=== PATIENT | female | born 1940 | race Asian ===

== ENCOUNTER 2018-07-04 12:36 | Emergency (ER) | payer OTHER, MEDICAID ==
[~2018-07-04] VITALS: Ht 160 cm; Wt 90.7 kg
[~2018-07-04 12:36] MED LIST: IBUP400T21 PO; LISI-646 PO
[2018-07-04 13:29] LABS: Basophils # (auto) 0 uL; Basophils % (auto) 0.8 % (0.0-2.0); Eosinophils # (auto) 0.2 uL; Eosinophils % (auto) 4.3 % (0.0-7.0); Hematocrit 44.3 % (36.0-46.0); Hemoglobin 14.7 g/dL (12.2-16.2); Lymphocytes # (auto) 1.5 uL; Lymphocytes % (auto) 31.6 % (10.0-50.0); Mean Corpuscular Hemoglobin 32.8 pg (28.0-32.0); Mean Corpuscular Hgb Conc. 33.1 g/dL (32.0-36.0); Mean Corpuscular Volume 99.2 fL (80.0-100.0); Monocytes # (auto) 0.4 uL; Monocytes % (auto) 8.7 % (0.0-12.0); Neutrophils # (auto) 2.6 uL; Neutrophils % (auto) 54.6 % (37.0-80.0); Nucleated Red Blood Cells % 0.1 %; Platelet Count (auto) 194 10^3/uL (140-450); Red Blood Cells 4.47 10^6/uL (4.0-5.20); Red Cell Distribution Width 13.2 % (11.8-14.3); White Blood Cell 4.8 10^3/uL (4.4-10.8)
[2018-07-04 13:46] LABS: Potassium 4.8 mmol/L (3.5-5.1)
[2018-07-04 13:53] LABS: Albumin 3.7 g/dL (3.4-5.0); BUN/Creatinine Ratio 19.7; Bilirubin, Total 0.4 mg/dL (0.2-1.0); Calcium 8.8 mg/dL (8.5-10.1); Total Protein 7.4 g/dL (6.4-8.2)
[2018-07-04 18:41] VITALS: BP 161/71
== END 2018-07-04 18:45 | disposition home or self-care (01) ==
LOC: ER 12:39
DX: J06.9 Acute upper respiratory infection, unspecified (principal); I11.0 Hypertensive heart disease with heart failure; I50.9 Heart failure, unspecified; E07.9 Disorder of thyroid, unspecified; Z90.49 Acquired absence of other specified parts of digestive tract
CPT/HCPCS: 36415; 71046; 80053; 83880; 85025; 93005

== ENCOUNTER 2019-04-10 12:05 | Emergency (ER) | payer OTHER ==
[~2019-04-10] VITALS: Ht 160 cm; Wt 91.6 kg
[2019-04-10 12:56] LABS: Basophils # (auto) 0 uL; Basophils % (auto) 0.8 % (0.0-2.0); Eosinophils # (auto) 0.3 uL; Eosinophils % (auto) 5.5 % (0.0-7.0); Hematocrit 46.1 % (36.0-46.0); Hemoglobin 15.2 g/dL (12.2-16.2); Lymphocytes % (auto) 36.7 % (10.0-50.0); Mean Corpuscular Hemoglobin 32.2 pg (28.0-32.0); Mean Corpuscular Hgb Conc. 32.9 g/dL (32.0-36.0); Mean Corpuscular Volume 97.9 fL (80.0-100.0); Monocytes # (auto) 0.4 uL; Monocytes % (auto) 6.9 % (0.0-12.0); Neutrophils # (auto) 2.7 uL; Neutrophils % (auto) 50.1 % (37.0-80.0); Nucleated Red Blood Cells % 0.1 %; Platelet Count (auto) 232 10^3/uL (140-450); Red Blood Cells 4.71 10^6/uL (4.0-5.20); Red Cell Distribution Width 12.9 % (11.8-14.3); White Blood Cell 5.3 10^3/uL (4.4-10.8)
[2019-04-10 13:15] LABS: BUN/Creatinine Ratio 12.3
[2019-04-10 13:18] LABS: Bilirubin, Total 0.5 mg/dL (0.2-1.0); Total Protein 7.9 g/dL (6.4-8.2)
[2019-04-10] MEDS ORDERED: cefTRIAXone SOD 1,000 MG VL IM ONE (13:30)
[2019-04-10] MEDS ORDERED: ALBUTEROL SULF 2.5 MG/0.5ML(0.5%) NEB SOLN NEB ONE (13:30)
[2019-04-10] MEDS ORDERED: methylPREDNISolone SOD SUCC 125 MG/2 ML VL IV ONE (13:30)
[2019-04-10] MEDS ORDERED: IPRATROPIUM BROM 0.5 MG/2.5ML INH SOL NEB ONE (13:30)
[2019-04-10] MEDS ORDERED: cefTRIAXone 1GM/50ML D5W 50 ML IV ONE ×2 (13:31→13:45)
[2019-04-10 13:32] VITALS: BP 152/86
== END 2019-04-10 15:47 | disposition home or self-care (01) ==
LOC: ER 12:13
DX: J18.9 Pneumonia, unspecified organism (principal); I10 Essential (primary) hypertension
CPT/HCPCS: 36415; 71046; 80053; 83605; 85025; 87040; 94640; 94761; 96365; 96375; 99284; J0696; J2930; J7611; J7644

== ENCOUNTER 2019-07-22 15:41 | Emergency (ER) | payer OTHER ==
[~2019-07-22] VITALS: Ht 160 cm; Wt 86.2 kg
[2019-07-22 19:10] VITALS: BP 162/83
[2019-07-22] MEDS ORDERED: HYDROcodone-ACET 5/325MG TAB PO ONE (19:15)
== END 2019-07-22 19:50 | disposition home or self-care (01) ==
LOC: ER 15:41
DX: S42.024A Nondisplaced fracture of shaft of right clavicle, initial encounter for closed fracture (principal); I10 Essential (primary) hypertension; Z90.49 Acquired absence of other specified parts of digestive tract; Z79.899 Other long term (current) drug therapy; Z79.1 Long term (current) use of non-steroidal anti-inflammatories (NSAID); W01.0XXA Fall on same level from slipping, tripping and stumbling without subsequent striking against object, initial encounter; Y93.89 Activity, other specified; Y92.89 Other specified places as the place of occurrence of the external cause; Y99.8 Other external cause status
CPT/HCPCS: 73030

== ENCOUNTER 2019-09-03 19:51 | Emergency (ER) | payer OTHER ==
[~2019-09-03] VITALS: Ht 162.6 cm; Wt 63.5 kg
[2019-09-03] MEDS ORDERED: HYDROcodone-ACET 10/325MG TAB PO ONE (21:00)
[2019-09-03] MEDS ORDERED: ONDANSETRON HCL 4 MG/2 ML VIAL IV ONE (22:00)
[2019-09-03] MEDS ORDERED: MORPHINE SULFATE 4 MG/ML SYR/VIAL IV ONE (22:00)
[2019-09-04] MEDS ORDERED: MORPHINE SULFATE 4 MG/ML SYR/VIAL IV ONE ×3 (00:45→08:15)
[2019-09-04] MEDS ORDERED: LIDOCAINE 1% HCL (LOCAL ANESTH.) INJ 20ML MDV ID ONE (02:30)
[2019-09-04] MEDS ORDERED: HYDROcodone-ACET 5/325MG TAB PO PRN ×2 (02:45→06:45)
[2019-09-04] MEDS ORDERED: MORPHINE SULFATE 4 MG/ML SYR/VIAL IV PRN ×2 (02:45→06:45)
[2019-09-04] MEDS ORDERED: TEMAZEPAM 15 MG CAP PO PRN ×2 (02:45→06:45)
[2019-09-04] MEDS ORDERED: ACETAMINOPHEN 325 MG TAB PO PRN ×2 (02:45→06:45)
[2019-09-04] MEDS ORDERED: ONDANSETRON HCL 4 MG/2 ML VIAL IV PRN ×2 (02:45→06:45)
[2019-09-04 07:00] LABS: Basophils # (auto) 0 10 ^3/uL (0-0.2); Basophils % (auto) 0.2 % (0.0-2.0); Eosinophils # (auto) 0 10 ^3/uL (0-0.8); Eosinophils % (auto) 0.4 % (0.0-7.0); Hematocrit 39.2 % (36.0-46.0); Hemoglobin 13.4 g/dL (12.2-16.2); Lymphocytes # (auto) 1.2 10 ^3/uL (0.4-5.4); Lymphocytes % (auto) 16.4 % (10.0-50.0); Mean Corpuscular Hemoglobin 32.9 pg (28.0-32.0); Mean Corpuscular Hgb Conc. 34.3 g/dL (32.0-36.0); Mean Corpuscular Volume 95.9 fL (80.0-100.0); Monocytes # (auto) 0.7 10 ^3/uL (0-1.3); Neutrophils # (auto) 5.5 10 ^3/uL (1.6-8.6); Platelet Count (auto) 180 10^3/uL (140-450); Red Blood Cells 4.08 10^6/uL (4.0-5.20); Red Cell Distribution Width 12.8 % (11.8-14.3); White Blood Cell 7.4 10^3/uL (4.4-10.8)
[2019-09-04 07:18] LABS: Albumin 3.3 g/dL (3.4-5.0); BUN/Creatinine Ratio 22.7; Calcium 8.3 mg/dL (8.5-10.1); INR 1.08 (0.9-1.15); Partial Thromboplastin Time 23.8 sec (23.64-32.05); Potassium 4.2 mmol/L (3.5-5.1)
[2019-09-04 07:21] LABS: Bilirubin, Total 0.7 mg/dL (0.2-1.0); Total Protein 6.6 g/dL (6.4-8.2)
[2019-09-04] MEDS ORDERED: ONDANSETRON HCL 4 MG/2 ML VIAL IV ONE (08:15)
[2019-09-04] MEDS ORDERED: LISINOPRIL 10 MG TAB PO SCH ×2 (10:00)
[2019-09-04] MEDS ORDERED: FAMOTIDINE 20 MG TAB PO SCH ×2 (10:00)
[2019-09-04 10:31] VITALS: BP 99/41
== END 2019-09-04 10:05 | disposition short-term general hospital (02) ==
LOC: EDBD 19:51 → ER 20:02 → OVERFLOW 20:03 → UNDOADMIN 20:03 → ER 09-04 10:05
DX: S82.002A Unspecified fracture of left patella, initial encounter for closed fracture (principal); S52.532A Colles' fracture of left radius, initial encounter for closed fracture; V89.2XXA Person injured in unspecified motor-vehicle accident, traffic, initial encounter; Y93.89 Activity, other specified; Y92.410 Unspecified street and highway as the place of occurrence of the external cause; Y99.8 Other external cause status
CPT/HCPCS: 12002; 36415; 73110; 73502; 73552; 73560; 73590; 73700; 80053; 85025; 85610; 85730; 96374; 96375; 96376; 99285; J2270; J2405; 12001; J2001

== ENCOUNTER 2024-04-23 15:37 | Emergency (ER) | payer OTHER, MEDICAID ==
[~2024-04-23] VITALS: Ht 160 cm; Wt 90.0 kg
[~2024-04-23 15:37] MED LIST changes: +IBUP-1453 PO; -IBUP400T21 PO; -LISI-646 PO; +LISI20TA56 PO
--- NOTE | 2024-04-23 15:52 | ED.PDOC ---
SOB-HPI HPI Comments HPI: Poor Historian. 84-year-old female extremely poor historian presents to emergency department to get her pneumonia checked. She said she was diagnosed with pneumonia last week and completed the five day course of antibiotics. Patient is still have some dry cough. Denies any fever or any other acute pain. Past Medcial History: Chronic low back pain Past Surgical History: REVIEW OF SYSTEMS: CONSTITUTIONAL: Denies acute: fever, diaphoresis, chills, HEAD: Denies acute: headache, photophobia Eyes: Denies acute: Double vision, vision loss, eye pain, eye discharge. EARS: Denies acute: tinnitus, hearing loss, ear discharge, ear pain, THROAT: Denies acute: sore throat, swelling, difficulty swallowing , pain with swallowing, change in voice. NECK: Denies acute: neck pain, neck swelling, stiff neck. HEART: Denies acute : chest pain, palpitations, LUNGS: Denies acute: wheezing, hemoptysis ABDOMEN: Denies acute: abdominal pain, Nausea, Vomiting, diarrhea, melena , hematemesis, hematochezia SKIN: Denies acute: rash, redness, lesions, itchiness. EXTREMITIES: Denies acute: calf pain, numbness, tingling, weakness, denies pain in extremity. Denies acute: Low back pain. Neuro: Denies acute: focal neurological deficit, motor or sensory focal neurological deficit, tremors, seizure like activity, confusion, dizziness, change in mental status, loss of bowel or bladder function, cauda equina like symptoms. : Denies acute: dysuria, hematuria, flank pain, increase in urinary frequency. PSYCH: Denies acute: hallucination, suicidal ideation, homicidal ideation. FEMALE: Denies acute: abnormal vaginal bleeding, foul odor, unusual discharge. PHYSICAL EXAM: General: no acute distress, awake and alert. Head: normocephalic, atraumatic. Neck: supple, trachea is midline, no swelling. Throat: Normal phonation. Eyes:, no erythema, no purulent discharge, no proptosis, no icterus. Heart: regular rate, regular rhythm, no significant murmur appreciated. Lungs: no apparent respiratory distress, Able to speak in full sentences. No wheezing, no rhonchi, no crackles. No stridors Clear to auscultation bilaterally. Abdomen: non tender to palpation, non distended, soft, no guarding, no rebound, + bowel sounds. Neuro: Awake, Alert, oriented to name, self, situation, follows commands GCS=15. Speech is normal. Skin: no petechia, no purpura, no cyanosis, non-pale, not jaundice. Lower extremities: --trace bilateral - Pitting edema no deformity, no focal swelling, no calf TTP. Makes eye contact. moves all four extremities. Face: no apparent facial droop. 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 Was a procedure done?: No Differential Dx Differential Diagnosis: Other (DDx include ACS, unstable angina, anxiety, PE, pneumothroax, neoplasm, cardiac ischemia, COPD, asthma, CHF, pleural effusion, tobacco abuse, pneumonia, hypoxia, hypercapnia, anemia., infection/sepsis., pulmonary edema. Asthma, Cardiac tamponade, infection.) X-Ray, Labs, Meds, VS Vital Signs Date Time Temp Pulse Resp B/P (MAP) Pulse Ox O2 Delivery O2 Flow Rate FiO2 04/23/24 17:40 93 04/23/24 16:05 97 04/23/24 15:57 98.7 99 18 129/66 (87) 95 Lab Test 04/23/24 19:38 04/23/24 18:36 04/23/24 17:51 04/23/24 16:00 Range/Units Troponin I High Sensitivity 27 27 </=34 ng/L Blood Gas Specimen Type Arterial Blood Gas Sample Site Left radial Blood Gas Patient Temperature 37.0 Arterial Blood Date Drawn [id number] Arterial Blood pH 7.433 7.350-7.450 Arterial Blood Partial Pressure CO2 32.5 32.0-45.0 mmHg Arterial Blood Partial Pressure O2 63.9 L 83.0-108.0 mmHg Arterial Blood HCO3 21.2 21.0-28.0 mmol/L Arterial Blood Oxygen Saturation 92.8 L 94.0-98.0 % Arterial Blood Base Excess -2.0 -2.0-3.0 mmol/L Arterial Blood Oxyhemoglobin 91.2 L 94.0-98.0 % Arterial Blood Carboxyhemoglobin 1.3 0.5-1.5 % Arterial Blood Methemoglobin 0.4 0.0-1.5 % Minh Test Yes Blood Gas Total Hemoglobin 16.00 12.0-16.0 g/dL Blood Gas Modality Room air Blood Gas Spontaneous Rate 20 FiO2 % 21.0 Blood Gas Notified Time [id number] SARS-CoV-2 Antigen (Rapid) Negative NEGATIVE Test 04/23/24 15:58 Range/Units White Blood Count 4.1 L 4.4-10.8 10^3/uL Red Blood Count 4.59 4.0-5.20 10^6/uL Hemoglobin 15.5 12.2-16.2 g/dL Hematocrit 45.3 36.0-46.0 % Mean Corpuscular Volume 98.8 80.0-100.0 fL Mean Corpuscular Hemoglobin 33.9 H 28.0-32.0 pg Mean Corpuscular Hemoglobin Concent 34.3 32.0-36.0 g/dL Red Cell Distribution Width 12.9 11.8-14.3 % Platelet Count 192 140-450 10^3/uL Mean Platelet Volume 7.1 6.9-10.8 fL Neutrophils (%) (Auto) 50.2 37.0-80.0 % Lymphocytes (%) (Auto) 37.3 10.0-50.0 % Monocytes (%) (Auto) 8.0 0.0-12.0 % Eosinophils (%) (Auto) 3.9 0.0-7.0 % Basophils (%) (Auto) 0.6 0.0-2.0 % Neutrophils # (Auto) 2.1 1.6-8.6 10 ^3/uL Lymphocytes # (Auto) 1.5 0.4-5.4 10 ^3/uL Monocytes # (Auto) 0.3 0-1.3 10 ^3/uL Eosinophils # (Auto) 0.2 0-0.8 10 ^3/uL Basophils # (Auto) 0 0-0.2 10 ^3/uL Nucleated Red Blood Cells 0.1 % Sodium Level 141 136-145 mmol/L Potassium Level 4.2 3.5-5.1 mmol/L Chloride Level 106 98-107 mmol/L Carbon Dioxide Level 28 20-31 mmol/L Anion Gap 7 5-15 Blood Urea Nitrogen 12 9-23 mg/dL Creatinine 0.74 0.550-1.02 mg/dL Glomerular Filtration Rate Calc 80 >90 mL/min BUN/Creatinine Ratio 16.2 10.0-20.0 Serum Glucose 105 74-106 mg/dL Calcium Level 10.1 8.7-10.4 mg/dL Total Bilirubin 0.6 0.2-1.0 mg/dL Aspartate Amino Transferase (AST) 17 13-40 U/L Alanine Aminotransferase (ALT) 14 7-40 U/L Alkaline Phosphatase 102 46-116 U/L Troponin I High Sensitivity 31 </=34 ng/L B-Type Natriuretic Peptide 69.91 0-100 pg/mL Total Protein 6.8 5.7-8.2 g/dL Albumin 4.1 3.2-4.8 g/dL [place] [address] Ph: [phone] DIAGNOSTIC IMAGING Diagnostic Imaging Report : [id number] Signed PATIENT: AMA DORSEY ACCT: [id number] UNIT: [id number] : 1940 LOC: ER ROOM / BED: / AGE / SEX: 84 / F ADM STATUS: REG ER SERVICE 1728 ORDERING PHYSICIAN: BRENDA ASCENCIO DO PROCEDURE(s): CTACH - CT ANGIO CHEST CONTRAST REASON: Mediastinal mass, shortness of breath ORDER NUMBER(s): [id number], ACCESSION NUMBER(s): [id number] Procedure: CT CT ANGIO CHEST CONTRAST Reason for study/Clinical History: Mediastinal mass, shortness of breath Comparison Study: None available at time of dictation. Exam Date: 04/23/2024 08:13 PM Radiation Dose Information: CT Dose: CTDI volume is 23.36 mGy. Dose-length product is 789.81 mGy*cm Contrast: Type of contrast: Omnipaque 350 Contrast inject: 100 mL Contrast wasted:0 TECHNIQUE: After the uneventful administration of intravenous contrast intravenously, CT imaging was performed through the chest. Coronal and sagittal reformations were performed by the technologist. MIP images were obtained and evaluated. FINDINGS: Lower Neck: Normal thyroid tissue is not visualized. There is enlarged heterogeneous tissue in the paratracheal area bilaterally which extends into the upper chest. Findings may represent a thyroid goiter or adenopathy. Recommend thyroid ultrasound for further evaluation.. Pulmonary artery measures 3.4 cm in diameter. There are no filling defects in the pulmonary arteries to suggest pulmonary emboli. Aorta and Vasculature: Normal caliber of thoracic aorta. Lymph Nodes: No enlarged intrathoracic lymph nodes. Mediastinum: Heart size is normal. There is no pericardial effusion. The esophagus is unremarkable. Lungs: No focal consolidation, pleural effusion or significant pneumothorax. No suspicious pulmonary nodule or mass. Musculoskeletal: No acute osseous abnormality. Upper abdomen: Limited portions of the upper abdomen are unremarkable. MIP reformatted images were obtained and evaluated. MIP reformatted images were obtained and evaluated. MIP reformatted images were obtained and evaluated. MIP reformatted images were obtained and evaluated. MIP reformatted images were obtained and evaluated. MIP reformatted images were obtained and evaluated. MIP reformatted images were obtained and evaluated. MIP 3-D reformations were obtained. IMPRESSION: 1. No findings to suggest pulmonary emboli. 2. Enlarged heterogeneous tissue replacing thyroid tissue bilaterally. This may represent a thyroid goiter or adenopathy. Recommend thyroid ultrasound for further evaluation. All CT scans at this medical facility are performed using dose modulation te chniques as appropriate to a performed exam including the following:Automated exposure control was utilized; adjustment of the MA and/or KV according to patient size; and use of iterative reconstruction technique. ATED BY: LURDES VASQUEZ Jr., DO DICTATED DATE/TIME: 04/23/242103 SIGNED BY: LURDES VASQUEZ Jr., SIGNED DATE/TIME: 04/23/242103 CC: [place] [address] Ph: [phone] DIAGNOSTIC IMAGING Diagnostic Imaging Report : [id number] Signed PATIENT: AMA DORSEY ACCT: [id number] UNIT: [id number] : 1940 LOC: ER ROOM / BED: / AGE / SEX: 84 / F ADM STATUS: REG ER SERVICE 1728 ORDERING PHYSICIAN: BRENDA ASCENCIO DO PROCEDURE(s): CTACH - CT ANGIO CHEST CONTRAST REASON: Mediastinal mass, shortness of breath ORDER NUMBER(s): [id number], ACCESSION NUMBER(s): [id number] Procedure: CT CT ANGIO CHEST CONTRAST Reason for study/Clinical History: Mediastinal mass, shortness of breath Comparison Study: None available at time of dictation. Exam Date: 04/23/2024 08:13 PM Radiation Dose Information: CT Dose: CTDI volume is 23.36 mGy. Dose-length product is 789.81 mGy*cm Contrast: Type of contrast: Omnipaque 350 Contrast inject: 100 mL Contrast wasted:0 TECHNIQUE: After the uneventful administration of intravenous contrast intravenously, CT imaging was performed through the chest. Coronal and sagittal reformations were performed by the technologist. MIP images were obtained and evaluated. FINDINGS: Lower Neck: Normal thyroid tissue is not visualized. There is enlarged heterogeneous tissue in the paratracheal area bilaterally which extends into the upper chest. Findings may represent a thyroid goiter or adenopathy. Recommend thyroid ultrasound for further evaluation.. Pulmonary artery measures 3.4 cm in diameter. There are no filling defects in the pulmonary arteries to suggest pulmonary emboli. Aorta and Vasculature: Normal caliber of thoracic aorta. Lymph Nodes: No enlarged intrathoracic lymph nodes. Mediastinum: Heart size is normal. There is no pericardial effusion. The esophagus is unremarkable. Lungs: No focal consolidation, pleural effusion or significant pneumothorax. No suspicious pulmonary nodule or mass. Musculoskeletal: No acute osseous abnormality. Upper abdomen: Limited portions of the upper abdomen are unremarkable. MIP reformatted images were obtained and evaluated. MIP reformatted images were obtained and evaluated. MIP reformatted images were obtained and evaluated. MIP reformatted images were obtained and evaluated. MIP reformatted images were obtained and evaluated. MIP reformatted images were obtained and evaluated. MIP reformatted images were obtained and evaluated. MIP 3-D reformations were obtained. IMPRESSION: 1. No findings to suggest pulmonary emboli. 2. Enlarged heterogeneous tissue replacing thyroid tissue bilaterally. This may represent a thyroid goiter or adenopathy. Recommend thyroid ultrasound for further evaluation. All CT scans at this medical facility are performed using dose modulation techniques as appropriate to a performed exam including the following:Automated exposure control was utilized; adjustment of the MA and/or KV according to patient size; and use of iterative reconstruction technique. ATED BY: LURDES VASQUEZ Jr., DO DICTATED DATE/TIME: 04/23/242103 SIGNED BY: LURDES VASQUEZ Jr., DO SIGNED DATE/TIME: 04/23/242103 CC: [place] [address] Ph: [phone] DIAGNOSTIC IMAGING Diagnostic Imaging Report : [id number] Signed PATIENT: AMA DORSEY ACCT: [id number] UNIT: [id number] : 1940 LOC: ER ROOM / BED: / AGE / SEX: 84 / F ADM STATUS: REG ER SERVICE 44 ORDERING PHYSICIAN: BRENDA ASCENCIO DO PROCEDURE(s): CXRP - CHEST PORTABLE REASON: sob ORDER NUMBER(s): [id number], ACCESSION NUMBER(s): [id number] CHEST RADIOGRAPH Indication:sob Technique: Single frontal view of the chest was obtained Comparison: None FINDINGS: Lines and Tubes: None Lungs: No focal consolidation. Fullness of the upper mediastinum. Bilateral lower lung zone and left mid lung zone linear densities. Pleura: No effusion. No pneumothorax. Cardiomediastinal contours: Unremarkable Bones: No acute osseous abnormality. Chronic fracture deformity of the right clavicle. IMPRESSION: Fullness of the upper mediastinum which may be from prominent thyroid/mediastinal mass /lymphadenopathy. CT is recommended for further evaluation. Bilateral lower lung zone and left mid lung zone atelectasis ATED BY: JENELLE DUEÑAS DO DICTATED DATE/TIME: 04/23/241640 SIGNED BY: JENELLE DUEÑAS DO SIGNED DATE/TIME: 04/23/241640 CC: Time of 1ST Reevaluation: 21:50 Reevaluation 1ST: Unchanged Time of 2ND Reevaluation: 21:52 (The case was discussed with the admitting team (HPI, physical exam, labs and diagnostic tests that were available at the time of disposition, ED course, treatment plan) on the phone. They agreed to come and evaluate the patient. They said they will likely discharge the patient home with home O2 oxygen and arrange for follow up. 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 ) Reevaluation 2ND: Unchanged Patient Education/Counseling: Diagnosis, Treatment Family Education/Counseling: No Family Present Comments Patient presented with the above HPI.--dyspnea----workup was initiated. patient was found with the above mentioned diagnosis. Patient ED course and VS have been stabilized. Patient has been reassessed in the ED and remained in a stable condition. Pertinent incidental findings were discussed with the patient and/or family. Patient/family voices understanding and is agreeable with plan. Patient has been observed in the ED adequate length of time to insure improvement/stability. patient was admitted to the medicine team for further evaluation and treatment of their presentation. All the reports of any imaging studies that were ordered by myself were reviewed by myself. Departure 1 Departure Time of Disposition: 17:57 Impression: Primary Impression: Dyspnea Additional Impressions: Abnormal finding on CT scan Lung mass T wave inversion in EKG Hypoxemia Disposition: ADMITTED INPATIENT Admit to: Tele Condition: Guarded Discharged With: Self Critical Care Note Critical Care Time?: Yes (35 min-critical care time only) BRENDA ASCENCIO DO Apr 23, 2024 15:51
--- NOTE | 2024-04-23 16:08 | ECG ---
[facility] Test Date: 2024-04-23 Test Time: 16:05:44 Pat Name: AMA DORSEY Department: er Room: [address] [place] [address] Gender: F Cytologist: shalom : 1940 Requested By: BRENDA ASCENCIO Order Number: [id number] Reading MD: Geovany Gonzalez Measurements Intervals [place] Rate: 97 P: 86 [place]: 135 QRS: 41 QRSD: 95 T: -76 QT: 385 QTc: 489 Interpretive Statements Sinus rhythm Abnormal T, consider ischemia, diffuse leads Baseline wander in lead(s) II,III,aVF,V2,V3 Electronically Signed On 04-26-2024 14:29:56 PDT by Geovany Gonzalez Please click the below link to view image of tracing.
[2024-04-23 16:15] LABS: Basophils # (auto) 0 10 ^3/uL (0-0.2); Basophils % (auto) 0.6 % (0.0-2.0); Eosinophils # (auto) 0.2 10 ^3/uL (0-0.8); Eosinophils % (auto) 3.9 % (0.0-7.0); Hematocrit 45.3 % (36.0-46.0); Hemoglobin 15.5 g/dL (12.2-16.2); Lymphocytes # (auto) 1.5 10 ^3/uL (0.4-5.4); Lymphocytes % (auto) 37.3 % (10.0-50.0); Mean Corpuscular Hemoglobin 33.9 pg (28.0-32.0); Mean Corpuscular Hgb Conc. 34.3 g/dL (32.0-36.0); Mean Corpuscular Volume 98.8 fL (80.0-100.0); Monocytes # (auto) 0.3 10 ^3/uL (0-1.3); Neutrophils # (auto) 2.1 10 ^3/uL (1.6-8.6); Neutrophils % (auto) 50.2 % (37.0-80.0); Nucleated Red Blood Cells % 0.1 %; Platelet Count (auto) 192 10^3/uL (140-450); Red Blood Cells 4.59 10^6/uL (4.0-5.20); Red Cell Distribution Width 12.9 % (11.8-14.3); White Blood Cell 4.1 10^3/uL (4.4-10.8)
[2024-04-23 16:36] LABS: Alanine Aminotransferase 14 U/L (7-40); Albumin 4.1 g/dL (3.2-4.8); Alkaline Phosphatase 102 U/L (46-116); Anion Gap 7 (5-15); Aspartate Aminotransferase 17 U/L (13-40); BUN/Creatinine Ratio 16.2 (10.0-20.0); Bilirubin, Total 0.6 mg/dL (0.2-1.0); Blood Urea Nitrogen 12 mg/dL (9-23); Calcium 10.1 mg/dL (8.7-10.4); Carbon Dioxide 28 mmol/L (20-31); Chloride 106 mmol/L (98-107); Glucose 105 mg/dL (74-106); Potassium 4.2 mmol/L (3.5-5.1); Sodium 141 mmol/L (136-145); Total Protein 6.8 g/dL (5.7-8.2)
--- NOTE | 2024-04-23 16:44 | DVH ---
CHEST RADIOGRAPH Indication:sob Technique: Single frontal view of the chest was obtained Comparison: None FINDINGS: Lines and Tubes: None Lungs: No focal consolidation. Fullness of the upper mediastinum. Bilateral lower lung zone and left mid lung zone linear densities. Pleura: No effusion. No pneumothorax. Cardiomediastinal contours: Unremarkable Bones: No acute osseous abnormality. Chronic fracture deformity of the right clavicle. IMPRESSION: Fullness of the upper mediastinum which may be from prominent thyroid/mediastinal mass /lymphadenopat hy. CT is recommended for further evaluation. Bilateral lower lung zone and left mid lung zone atelectasis
[2024-04-23 17:15] LABS: COVID19 ANTIGEN SOFIA FIA NEGATIVE (NEGATIVE)
[2024-04-23] MEDS: IOHEXOL 350 MG/ML 100ML IJ ONE ×2 (19:21→20:31)
--- NOTE | 2024-04-23 21:07 | DVH ---
Procedure: CT CT ANGIO CHEST CONTRAST Reason for study/Clinical History: Mediastinal mass, shortness of breath Comparison Study: None available at time of dictation. Exam Date: 04/23/2024 08:13 PM Radiation Dose Information: CT Dose: CTDI volume is 23.36 mGy. Dose-length product is 789.81 mGy*cm Contrast: Type of contrast: Omnipaque 350 Contrast inject: 100 mL Contrast wasted:0 TECHNIQUE: After the uneventful administration of intravenous contrast intravenously, CT imaging was performed through the chest. Coronal and sagittal reformations were performed by the technologist. MIP images were obtained and evaluated. FINDINGS: Lower Neck: Normal thyroid tissue is not visualized. There is enlarged heterogeneous tissue in the pa ratracheal area bilaterally which extends into the upper chest. Findings may represent a thyroid goit er or adenopathy. Recommend thyroid ultrasound for further evaluation.. Pulmonary artery measures 3.4 cm in diameter. There are no filling defects in the pulmonary arteries to suggest pulmonary emboli. Aorta and Vasculature: Normal caliber of thoracic aorta. Lymph Nodes: No enlarged intrathoracic lymph nodes. Mediastinum: Heart size is normal. There is no pericardial effusion. The esophagus is unremarkable. Lungs: No focal consolidation, pleural effusion or significant pneumothorax. No suspicious pulmonary nodule or mass. Musculoskeletal: No acute osseous abnormality. Upper abdomen: Limited portions of the upper abdomen are unremarkable. MIP reformatted images were obtained and evaluated. MIP reformatted images were obtained and evaluated. MIP reformatted images were obtained and evaluated. MIP reformatted images were obtained and evaluated. MIP reformatted images were obtained and evaluated. MIP reformatted images were obtained and evaluated. MIP reformatted images were obtained and evaluated. MIP 3-D reformations were obtained. IMPRESSION: 1. No findings to suggest pulmonary emboli. 2. Enlarged heterogeneous tissue replacing thyroid tissue bilaterally. This may represent a thyroid goiter or adenopathy. Recommend thyroid ultrasound for further evaluation. All CT scans at this medical facility are performed using dose modulation techniques as appropriate t o a performed exam including the following:Automated exposure control was utilized; adjustment of the MA and/or KV according to patient size; and use of iterative reconstruction technique.
[2024-04-23] MEDS ORDERED: ACETAMINOPHEN 325 MG TAB PO PRN (21:45)
[2024-04-23] MEDS ORDERED: MORPHINE SULFATE INJ 2 MG/ml SYRG IV PRN (21:45)
[2024-04-23] MEDS ORDERED: ONDANSETRON HCL 4 MG/2 ML VIAL IV PRN (21:45)
[2024-04-23] MEDS ORDERED: HYDROcodone-ACET 5/325MG TAB PO PRN (21:45)
[2024-04-23] MEDS ORDERED: NITROGLYCERIN 0.4 MG SL TAB SL PRN (21:45)
--- NOTE | 2024-04-23 21:58 | DVHINCON2 ---
ALEXANDR SHEEHAN NURSE ANESTHESIA PROGRAM DIRECTOR 04/23/24 2158: Date of service: Apr 23, [address] Slade Reason for Consultation Medical management History of Present Illness 84-year-old female with past medical history COPD, chronic back pain Presents with complaints of shortness of breath. Patient endorsed to ER provider she had recently been treated for pneumonia with oral antibiotics. During the emergency department evaluation, CBC is unremarkable W-4.1, H&H 15.5/45.3, PLT 192; CMP is unremarkable Na 141, K 4.2, BUN 12, creatinine 0.74, troponin negative ; BNP 69.9. CXR demonstrates left lobe atelectasis, CTA chest is negative for PE or other acute findings. Does demonstrate enlarged tissue replacing thyroid tissue bilaterally, May represent the thyroid goiter, Which is under treatment by PCP. At this time patient denies Fevers, chills, Chest pain, palpitations, Abdominal pain, dysuria. Patient did endorse Lower back pain And intermittent episodes of diarrhea over the previous month. Family History: FH: HTN (hypertension) FHx: obesity Allergies: Coded Allergies: NO KNOWN ALLERGIES (Unverified , 03/16/17) Home Meds Reported Medications Lisinopril (Lisinopril) 20 Mg Tab, 10 MG PO DAILY, TAB 03/17/17 Ibuprofen (Ibuprofen) 400 Mg Tab, 1 TAB PO BIDPRN PRN for MILD PAIN OR TEMP>100.4, #20 TAB 03/17/17 Current Medications Current Medications Medications (Trade) Dose Ordered Sig/Randi Route PRN Reason Start Time Stop Time Status Last Admin Acetaminophen (Tylenol Tablet) 325 mg Q4HP PRN PO MILD PAIN (1-3 PAIN SCALE) 04/23/24 21:45 Acetaminophen/ Hydrocodone Bitart ([place] 5/325MG Tab) 1 tab Q4HP PRN PO MODERATE PAIN (4-6 PAIN SCALE) 04/23/24 21:45 Ondansetron HCl (Zofran) 4 mg Q4HP PRN IV NAUSEA / VOMITING 04/23/24 21:45 Enoxaparin Sodium (Lovenox) 40 mg DAILY SC 04/24/24 10:00 Nitroglycerin (Ntrostat Sublingual) 0.4 mg Q5MINP PRN SL FOR CHEST PAIN 04/23/24 21:45 Morphine Sulfate 2 mg Q30M PRN IV FOR CHEST PAIN 04/23/24 21:45 Review of Systems 10 systems reviewed and negative except per HPI Vital Signs Vital Signs Date Time Temp Pulse Resp B/P (MAP) Pulse Ox O2 Delivery O2 Flow Rate FiO2 04/23/24 17:40 93 04/23/24 15:57 98.7 18 129/66 (87) 95 Physical Exam GENERAL: Patient appearing stated age, in no acute distress. Anxious behavior. HEENT: Pupils equal and reactive to light and accommodation. Extraocular muscles intact. Mucous membranes moist. Conjunctivae pink. Anicteric sclerae. LUNGS: Bilateral air entry. No wheezes, rhonchi or rales. HEART: Regular rate and rhythm. Normal S1 and S2. ABDOMEN: BS normoactive, soft, nontender, and nondistended. No CVA tenderness. EXTREMITIES: No clubbing, cyanosis, trace edema. No calf tenderness. Pedal pulses 2+. NEUROLOGICAL: The patient is alert and oriented times 3. CN II-XII intact. No focal deficits on gross sensory or motor examination. Labs/Diagnostic Data Labs Test 04/23/24 19:38 04/23/24 18:36 04/23/24 16:00 04/23/24 15:58 Range/Units Troponin I High Sensitivity 27 </=34 ng/L Blood Gas Specimen Type Arterial Blood Gas Sample Site Left radial Blood Gas Patient Temperature 37.0 Arterial Blood Date Drawn [id number] Arterial Blood pH 7.433 7.350-7.450 Arterial Blood Partial Pressure CO2 32.5 32.0-45.0 mmHg Arterial Blood Partial Pressure O2 63.9 L 83.0-108.0 mmHg Arterial Blood HCO3 21.2 21.0-28.0 mmol/L Arterial Blood Oxygen Saturation 92.8 L 94.0-98.0 % Arterial Blood Base Excess -2.0 -2.0-3.0 mmol/L Arterial Blood Oxyhemoglobin 91.2 L 94.0-98.0 % Arterial Blood Carboxyhemoglobin 1.3 0.5-1.5 % Arterial Blood Methemoglobin 0.4 0.0-1.5 % Minh Test Yes Blood Gas Total Hemoglobin 16.00 12.0-16.0 g/dL Blood Gas Modality Room air Blood Gas Spontaneous Rate 20 FiO2 % 21.0 Blood Gas Notified Time [id number] SARS-CoV-2 Antigen (Rapid) Negative NEGATIVE White Blood Count 4.1 L 4.4-10.8 10^3/uL Red Blood Count 4.59 4.0-5.20 10^6/uL Hemoglobin 15.5 12.2-16.2 g/dL Hematocrit 45.3 36.0-46.0 % Mean Corpuscular Volume 98.8 80.0-100.0 fL Mean Corpuscular Hemoglobin 33.9 H 28.0-32.0 pg Mean Corpuscular Hemoglobin Concent 34.3 32.0-36.0 g/dL Red Cell Distribution Width 12.9 11.8-14.3 % Platelet Count 192 140-450 10^3/uL Mean Platelet Volume 7.1 6.9-10.8 fL Neutrophils (%) (Auto) 50.2 37.0-80.0 % Lymphocytes (%) (Auto) 37.3 10.0-50.0 % Monocytes (%) (Auto) 8.0 0.0-12.0 % Eosinophils (%) (Auto) 3.9 0.0-7.0 % Basophils (%) (Auto) 0.6 0.0-2.0 % Neutrophils # (Auto) 2.1 1.6-8.6 10 ^3/uL Lymphocytes # (Auto) 1.5 0.4-5.4 10 ^3/uL Monocytes # (Auto) 0.3 0-1.3 10 ^3/uL Eosinophils # (Auto) 0.2 0-0.8 10 ^3/uL Basophils # (Auto) 0 0-0.2 10 ^3/uL Nucleated Red Blood Cells 0.1 % Sodium Level 141 136-145 mmol/L Potassium Level 4.2 3.5-5.1 mmol/L Chloride Level 106 98-107 mmol/L Carbon Dioxide Level 28 20-31 mmol/L Anion Gap 7 5-15 Blood Urea Nitrogen 12 9-23 mg/dL Creatinine 0.74 0.550-1.02 mg/dL Glomerular Filtration Rate Calc 80 >90 mL/min BUN/Creatinine Ratio 16.2 10.0-20.0 Serum Glucose 105 74-106 mg/dL Calcium Level 10.1 8.7-10.4 mg/dL Total Bilirubin 0.6 0.2-1.0 mg/dL Aspartate Amino Transferase (AST) 17 13-40 U/L Alanine Aminotransferase (ALT) 14 7-40 U/L Alkaline Phosphatase 102 46-116 U/L B-Type Natriuretic Peptide 69.91 0-100 pg/mL Total Protein 6.8 5.7-8.2 g/dL Albumin 4.1 3.2-4.8 g/dL Assessment Dyspnea Plan/Recommendation While in the emergency department patient has remained hemodynamically stable BP 141/61, HR 85, 18 BPM with an oxygen saturation of 97% on room air. Given the patient was recently treated for upper respiratory infection / pneumonia and is mildly hypoxic on ABG with pO2 63.9 Will discharge the patient home with supplemental oxygen. HMO designated case management has been consulted to set up home oxygen to be delivered to the patients home. Also set up home health for a home safety evaluation and patient follow up with PCP. Plan was discussed in detail with the patient and her partner. Both verbalized understanding and agreeing with plan of care. transactional paralegal Magui updated on plan of care and discharge instructions. Patient was provided with strict ER precautions including but not limited to dizziness, worsening shortness of breath, chest pain, palpitations, abdominal pain, nausea, vomiting. Plan was discussed in detail with supervising physician, Dr. Carson who agreed with plan of care. Plan discussed with: Patient, Spouse, Other (transactional paralegal) EDMOND CARSON MD 04/26/24 1340: Family History: FH: HTN (hypertension) FHx: obesity Allergies: Coded Allergies: NO KNOWN ALLERGIES (Unverified , 03/16/17) Home Meds Reported Medications Lisinopril (Lisinopril) 20 Mg Tab, 10 MG PO DAILY, TAB 03/17/17 Ibuprofen (Ibuprofen) 400 Mg Tab, 1 TAB PO BIDPRN PRN for MILD PAIN OR TEMP>100.4, #20 TAB 03/17/17 Additional Comments Additional Comments Additional Comments Plan of care discussed with the nurse practitioner, I agree with the assessment and plan. ALEXANDR SHEEHAN NP Apr 23, 2024 21:58 EDMOND CARSON MD Apr 26, 2024 13:40
[2024-04-23 22:59] VITALS: PULSE 92; RESP 18; O2SAT 96
[2024-04-24 00:45] VITALS: PULSE 85; RESP 22; TEMP 98.7; O2SAT 97
--- NOTE | 2024-04-24 02:30 | ECG ---
[facility] Test Date: 2024-04-23 Test Time: 17:40:27 Pat Name: AMA DORSEY Department: ER Room: [address] [place] [address] A Gender: F Shoe Reconditioner: MARLA : 1940 Requested By: BRENDA ASCENCIO Order Number: [id number] Reading MD: Geovany Gonzalez Measurements Intervals [place] Rate: 93 P: 88 KS: 129 QRS: 47 QRSD: 91 T: -65 QT: 421 QTc: 524 Interpretive Statements Sinus rhythm Abnormal T, consider ischemia, diffuse leads Prolonged QT interval Electronically Signed On 04-26-2024 14:35:53 PDT by Geovany Gonzalez Please click the below link to view image of tracing.
[2024-04-24 07:30] VITALS: PULSE 81; RESP 16; O2SAT 94
[2024-04-24] MEDS ORDERED: ENOXAPARIN SOD 40 MG/0.4 ML SYRINGE SC SCH (10:00)
[2024-04-24 12:31] VITALS: BP 121/61; PULSE 81; RESP 16; O2SAT 96
== END 2024-04-24 13:20 | disposition home or self-care (01) ==
LOC: ER 15:37 → OVERFLOW 21:35 → UNDOADMIN 21:35 → UNDODISIN 04-24 13:01 → OVERFLOW 04-24 13:20
DX: R09.02 Hypoxemia (principal); R06.00 Dyspnea, unspecified; R06.02 Shortness of breath; J98.11 Atelectasis; G89.29 Other chronic pain; M54.50 Low back pain, unspecified; I10 Essential (primary) hypertension; J44.9 Chronic obstructive pulmonary disease, unspecified; Z82.49 Family history of ischemic heart disease and other diseases of the circulatory system; Z79.899 Other long term (current) drug therapy; Z20.822 Contact with and (suspected) exposure to COVID-19
CPT/HCPCS: 36415; 36600; 71045; 71275; 80053; 82805; 83880; 84484; 85025; 87426; 93005; 99285; Q9967; 99291; G0378

== ENCOUNTER 2024-12-24 12:48 | Emergency (ER) | payer OTHER, MEDICAID ==
[~2024-12-24] VITALS: Ht 167.6 cm; Wt 78.2 kg
[2024-12-24 13:06] VITALS: BP 150/79; PULSE 94; RESP 18; TEMP 97.5; O2SAT 99
== END 2024-12-24 15:04 | disposition left against medical advice (07) ==
LOC: ER 12:48
DX: M79.671 Pain in right foot (principal); Z53.21 Procedure and treatment not carried out due to patient leaving prior to being seen by health care provider